=== PATIENT | female | born 1950 | race Caucasian/White ===

== ENCOUNTER → 2020-01-02 10:50 | Outpatient (CLI) | payer MEDICARE, BC, SELFPAY ==
--- NOTE | 2020-01-02 | DI.RAD.S_ITS ---
PROCEDURE: FL BARIUM SWALLOW INDICATIONS: Gastro-esophageal reflux disease without esophagit COMPARISON: None. FINDINGS: Function: There is decreased esophageal peristalsis. No elicited gastroesophageal reflux. There is normal transit of a calibrated barium tablet through the esophagus into the stomach. Morphology: Air-contrast images demonstrate normal mucosal morphology. Single contrast views show no esophageal strictures, extrinsic mass effects, or diverticula. Limited images of the stomach demonstrate normal appearance. IMPRESSION: Esophageal dysmotility Dictated by: Rashid Bruno M.D. on 01/02/2020 at 12:34 Approved by: Rashid Bruno M.D. on 01/02/2020 at 12:35
== END ==
PROVIDERS: PCP Family Medicine; Referring Provider Family Medicine; Visit Provider Family Medicine
DX: K21.9 Gastro-esophageal reflux disease without esophagitis (principal); K22.4 Dyskinesia of esophagus
CPT/HCPCS: 74220

== ENCOUNTER → 2020-03-25 13:26 | Outpatient (CLI) | payer MEDICARE, BC, SELFPAY ==
[2020-03-25 14:37] LABS: COVID19 -Nasal RAPID Negative (Negative)
== END ==
PROVIDERS: PCP Family Medicine; Visit Provider Physician Assistant
DX: Z11.59 Encounter for screening for other viral diseases (principal)
CPT/HCPCS: 87635

== ENCOUNTER 2020-03-27 10:49 | Day surgery (SDC) | payer MEDICARE, BC, SELFPAY ==
[2020-03-27] VITALS (7 sets, daily range): BP systolic 124–140; BP diastolic 20–86; PULSE 58–95; RESP 12–18; TEMP 36.2–36.5; O2SAT 93–98; BMI 30.7
--- NOTE | 2020-03-27 | PATH_ITS ---
[facility] Accession Number: [id number] . 01 Material submitted: . PART A: body - GASTRITIS PART B: hepatic flexure - HEPATIC POLYP . 01 Clinical history: . A: GASTRITIS R/O HP . 02 Diagnosis: A. Stomach, Biopsies: Gastric body mucosa with mild chronic inflammation. Negative for Helicobacter organisms by immunohistochemistry. Negative for intestinal metaplasia. Negative for dysplasia or malignancy. . B. Hepatic Flexure, Biopsy: Inflammatory polyp. Negative for dysplasia or malignancy. Additional step sections examined. MRV 04/01/2020 1517 Local . 02 Electronically signed: . Indra Esqueda MD, PhD, Pathologist NPI- [id number] . 01 Gross description: . Part A: GASTRITIS: Received in formalin is 1 fragment(s) of zavala, soft tissue measuring 0.4 x 0.2 x 0.1 cm submitted entirely in 1 cassette(s) Part B: HEPATIC POLYP: Received in formalin is 1 fragment(s) of zavala, soft tissue measuring 0.4 x 0.3 x 0.4 cm which is inked, bisected and submitted entirely in 1 cassette(s) 1. /QBJ 03/28/2020 0654 Local . 02 Microscopic: . A. An immunohistochemical stain was performed to evaluate for Helicobacter organisms and is negative. The control stain showed appropriate reactivity. . * This test was developed and its performance characteristics determined by [facility]. It has not been cleared or approved by the U.S. Food and Drug Administration. The FDA has determined that such clearance or approval is not necessary. This test is used for clinical purposes. It should not be regarded as investigational or for research. . 02 Pathologist provided ICD-10: K29.70, K51.40 . 02 CPT . 316433, 610785, Y17502 Performed at: 01 [facility] [address] [place] [address], [place], [place] [id number] MD Cristino Graham MD Phone: [phone] Performed at: 02 [facility] [address] [place], [place] [id number] MD Sharona Fritz MD Phone: [phone]
[2020-03-27] MEDS: SODIUM CHLORIDE 0.9% 1,000 ML 200 ML IV (11:28)
--- NOTE | 2020-03-27 12:08 | PM.HP.1 ---
History of Present Illness History of Present Illness Date Patient Seen: 03/27/20 Chief complaint: DX COLONOSCOPY/EGD Narrative: GE reflux with cough and adenomatous colon polyps need for EGD and colonoscopy Patient History Family & Social History Social History: household members spouse Tobacco & Substance use: Smoking Status Never smoker alcohol intake frequency holiday/special occasion Substance Use Type does not use Meds Home Medications and Allergies Home Medications Medication Instructions Recorded Confirmed Type atorvastatin 10 mg PO DAILY 03/27/20 03/27/20 History pantoprazole 40 mg PO BID 03/27/20 03/27/20 History Allergies Allergy/AdvReac Type Severity Reaction Status Date / Time No Known Drug Allergies Allergy Verified 03/27/20 11:10 Exam Vital Signs (past 8 hours): - 03/27/20 11:11 Temperature 97.1 F L Pulse Rate 58 L Respiratory Rate 16 Blood Pressure 140/77 Pulse Oximetry 98 Oxygen Delivery Method Room Air Narrative Exam Narrative: Oropharynx free of lesions Chest clear to auscultation percussion Cardiac exam reveals no S3 or murmur Assessment & Plan Assessment & Plan narrative: GE reflux with cough and history of adenomatous colon polyps. Need for EGD and colonoscopy. Risks, benefits, and alternatives have been explained.
--- NOTE | 2020-03-27 12:10 | PM.OP.ENDO ---
Operative Date/Time/Diagnoses Date of procedure: 03/27/20 Pre-op diagnosis: See indication and findings Post-op diagnosis: same Procedure & Clinicians Study performed: EGD and colonoscopy Same procedure as scheduled: Yes Indications: GE reflux with cough and history of adenomatous colon polyps Surgeon: Ana Paula Dougherty Procedure Notes Procedure in detail: After informed consent was obtained the patient was placed in left lateral decubitus position. Video colonoscope was introduced the rectum slowly advanced to cecum. Preparation was good. On slow withdrawal mucosa was carefully examined. The scope was removed. Patient tolerated procedure well. The gastroscope was then substituted. This was passed through the mouth into the esophagus stomach and duodenum. These were carefully examined on withdrawal. Retroflexed view was performed. The scope was removed. The patient tolerated procedure well. Blood loss none Complications none Sedation Total sedation time 21 minutes Versed 8 mg fentanyl 150 micro g IV titration Findings EGD 1. Normal esophagus with normal squamocolumnar junction 2. Streaky gastric erythema in the distal stomach and antrum biopsies taken to rule out Helicobacter 3. Normal duodenal bulb and sweep Colonoscopy 1. A 6 mm pedunculated polyp at the hepatic flexure hot snared removed completely. Hot snare used because of visibility of the feeding blood vessel through the polyp stalk. 2. Sigmoid diverticulosis 3. Otherwise negative colonoscopy to cecum Will be in touch regarding the pathology. For repeat colonoscopies will be based on the pathology of her polyp but most likely, with new surveillance changes at the site a level, no have her come back and 7-10 years probably on her 78th birthday. Her double dose of Protonix as completely ameliorated her cough symptoms. I suggest she stick the medication b.i.d. through the holidays and then taper down to once daily after the of the year. We will then see how long this once a day medication will help the cough. Further recommendations will follow the response. This
[2020-03-27] MEDS: fentaNYL 250 MCG/5 ML INJ IV (12:59)
[2020-03-27] MEDS: MIDAZOLAM 5 MG/5 ML VIAL IV (13:06)
== END 2020-03-27 14:12 | disposition home or self-care (01) ==
PROVIDERS: Referring Provider Internal Medicine Gastroenterology; Visit Provider Internal Medicine Gastroenterology
PROC: 0DJ08ZZ Inspection of Upper Intestinal Tract, Via Natural or Artificial Opening Endoscopic (ICD-10-PCS; CPT 43235; principal; 2020-03-27 12:30)
PROC: 0DJD8ZZ Inspection of Lower Intestinal Tract, Via Natural or Artificial Opening Endoscopic (ICD-10-PCS; CPT 45378; 2020-03-27 12:30)
DX: Z12.11 Encounter for screening for malignant neoplasm of colon (principal); R05 Cough; Z86.010 Personal history of colon polyps; K21.9 Gastro-esophageal reflux disease without esophagitis; J45.909 Unspecified asthma, uncomplicated; K57.30 Diverticulosis of large intestine without perforation or abscess without bleeding; K29.50 Unspecified chronic gastritis without bleeding; K51.40 Inflammatory polyps of colon without complications
CPT/HCPCS: 45385; 43239; J2250; J3010

== ENCOUNTER 2021-08-12 06:50 | Emergency (ER) | payer MEDICARE, BC, SELFPAY ==
[2021-08-12 06:57] VITALS: BP 212/100; PULSE 54; RESP 20; TEMP 37; O2SAT 98
--- NOTE | 2021-08-12 07:23 | ED_ITS ---
HPI - Extremity Injury (Lower) General Chief Complaint: Extremity Injury, Lower Stated Complaint: R/O DVT in left leg Time Seen by Provider: 08/12/21 07:23 Source: patient Mode of arrival: Ambulatory Limitations: no limitations History of Present Illness HPI Narrative: This is a 70-year-old female who comes in to evaluate for DVT of the left leg. Patient had a remote injury to her knee, she end up having an MRI was found to have a meniscal tear. She saw orthopedic surgery who gave her a prednisone injection to the knee and she is on oral prednisone currently. Her pain is typically been in the front of the but she has began to develop pain in the back of the knee and now radiating up into her left inner thigh. Patient states she has not any known history of DVTs but she is on estrogen replacement. Patient states that she has felt like the leg is maybe slightly warmer than the other but she has not appreciated any redness or significant swelling. She has not had any new injuries or changes. She denies fevers or chills. No chest pain or shortness of breath, no other GI or urinary symptoms. She was seen at walk-in clinic or urgent care was recommended try to get a DVT ultrasound but they can arrange this outpatient for 2-3 more days to patient came for more urgent evaluation. She is on atorvastatin and pantoprazole. She has been taking NSAIDs as needed for pain management. No known drug allergies. She has had a right knee surgery remotely but no intervention on her left knee. No tobacco, occasional alcohol, no illicit. She is noted to have elevated blood pressure today she states she is typically 120s in was 120 yesterday the urgent care. Related Data Home Medications Medication Instructions Recorded Confirmed atorvastatin 10 mg tablet 10 mg PO DAILY 03/27/20 03/27/20 pantoprazole 40 mg tablet,delayed 40 mg PO BID 03/27/20 03/27/20 release Allergies Allergy/AdvReac Type Severity Reaction Status Date / Time No Known Drug Allergies Allergy Verified 03/27/20 11:10 Review of Systems Review of Systems ROS Unobtainable: All systems reviewed & are unremarkable except as noted in HPI and below Patient History Social History household members: spouse Smoking Status: Never smoker Smoking Status: Never smoker alcohol intake frequency: holidays/special occasions only Substance Use Type: does not use Exam Narrative Exam Narrative: GENERAL: Alert and oriented x three, female in mild distress. HEENT: Head normocephalic, atraumatic, EOMI, pupils reactive, face symmetric, moist mucous membranes NECK: Supple, full range of motion CARDIOVASCULAR: Regular rate and rhythm without murmurs, rubs or gallops. RESPIRATORY: Breath sounds equal bilaterally, no wheezes rales or rhonchi. ABDOMEN: Soft, nontender. Normoactive bowel sounds all 4 quadrants. No guarding or rebound, rigidity, no mass EXTREMITIES: Normal range of motion, no clubbing or edema. Neurovascularly intact. Mild tenderness in the posterior knee. Negative Homans. Patient does not have any swelling, erythema or warmth appreciated in the lower extremity. She has 2+ pulse bilaterally. Joint laxity testing is normal. Patient does have some mild increase in pain with compression test. Patient is able to stand and move without issue. NEUROLOGICAL: Cranial nerves II through XII grossly intact. Moving all extremities SKIN: Warm, dry, no petechiae, no rashes or lesions. Initial Vital Signs Initial Vital Signs: Vital Signs Temperature 98.6 F 08/12/21 06:57 Pulse Rate 54 L 08/12/21 06:57 Respiratory Rate 20 08/12/21 06:57 Blood Pressure 212/100 H 08/12/21 06:57 Pulse Oximetry 98 08/12/21 06:57 Course Orders Ordered: ED Orders 08/12/21 07:35 US perip venous low extrem lt Stat Vital Signs Vital signs: Vital Signs - 8 hr 08/12/21 06:57 Temperature 98.6 F Pulse Rate 54 L Respiratory Rate 20 Blood Pressure 212/100 H Pulse Oximetry 98 MDM - Extremity Injury (Lower) Imaging Data US - DVT: Radiologist's Impression: Launch?[address] [address] Ultrasound Report Signed Patient: Roseline Austin MR#: [id number] : 1950 Acct:[id number] Age/Sex: 70 / F Date of Service: 08/12/21 Loc: ED Accession Number: [id number] ?? Procedure: US periph venous low extrem lt Ordering Provider: Charisse Ga D.O. PROCEDURE:? US PERIPH VENOUS LOW EXTREM LT ? INDICATIONS:? left posterior knee and inner thigh pain ? TECHNIQUE:? Real-time imaging, as well as color and pulse Doppler interrogation, were performed of the lower extremity deep veins from the inguinal ligament to the popliteal fossa.? ? COMPARISON:? None. ? FINDINGS:? The common femoral, femoral and popliteal veins are normally compressible, and free of intraluminal thrombus.? Color and pulse Doppler demonstrate normal phasic intraluminal flow.? There is normal augmentation response to distal compression maneuver. ?A Gustafson's cyst is seen measuring 2.7 x 0.8 x 1.2 cm. ? IMPRESSION:? No DVT in the left lower extremity. ? ? Dictated by: Dean Soler M.D. on 08/12/2021 at 8:14 ? ? Approved by: Dean Soler M.D. on 08/12/2021 at 8:14 MDM Narrative Medical decision making narrative: This is a 70-year-old female presents for evaluation for DVT of left leg. She has pain that has changed location in terms of her recent knee injury. She has pain in the posterior knee and inner thigh she has appreciate some slight warmth but her exam otherwise is reassuring. She has attempted to have outpatient follow-up for DVT ultrasound but will be several days until this can be obtained. She does have risk factors being on estrogen. Patient is hypertensive on initial arrival. Ultrasound shows Gustafson cyst but no DVT. Patient does note pain in the posterior knee this is likely source of that discomfort. Upper thigh may also be related to adjusting her gait secondary to her meniscal injury. Discussed today's findings with the patient all questions answered. Discharge Plan Departure Patient Disposition: Home Clinical Impression: Left leg pain, Gustafson's cyst Instructions: DI for Leg Pain Activity Restrictions/Additional Instructions: I suspect your pain and discomfort is secondary to your body trying to adjust the injury to your knee. There is no DVT noted on your ultrasound but there is a Gustafson's cyst which could cause pain behind your knee. If you tolerate Tylenol you may take this up to a 1000 mg every 6 hours as needed in addition to ibuprofen. Please return for new warmth, redness, increasing swelling, rapidly worsening pain, numbness, tingling or weakness or other new or concerning symptoms. Prescriptions: No Action pantoprazole 40 mg tablet,delayed release (DR/EC) 40 mg PO BID 0RF atorvastatin 10 mg tablet 10 mg PO DAILY 0RF
--- NOTE | 2021-08-12 07:35 | DI.US.S_ITS ---
PROCEDURE: US PERIPH VENOUS LOW EXTREM LT INDICATIONS: left posterior knee and inner thigh pain TECHNIQUE: Real-time imaging, as well as color and pulse Doppler interrogation, were performed of the lower extremity deep veins from the inguinal ligament to the popliteal fossa. COMPARISON: None. FINDINGS: The common femoral, femoral and popliteal veins are normally compressible, and free of intraluminal thrombus. Color and pulse Doppler demonstrate normal phasic intraluminal flow. There is normal augmentation response to distal compression maneuver. A Gustafson's cyst is seen measuring 2.7 x 0.8 x 1.2 cm. IMPRESSION: No DVT in the left lower extremity. Dictated by: Dean Soler M.D. on 08/12/2021 at 8:14 Approved by: Dean Soler M.D. on 08/12/2021 at 8:14
[2021-08-12 08:29] VITALS: BP 155/79; PULSE 55; RESP 16; O2SAT 97
== END 2021-08-12 08:28 | disposition home or self-care (01) ==
PROVIDERS: Emergency Provider Emergency Medicine
DX: M79.662 Pain in left lower leg (principal); M71.22 Synovial cyst of popliteal space [Baker], left knee
CPT/HCPCS: 93971; 99283

== ENCOUNTER → 2024-02-25 12:36 | Outpatient (CLI) | payer MEDICARE, BC, SELFPAY ==
--- NOTE | 2024-02-25 12:39 | DI.MRI.S_ITS ---
PROCEDURE: MR LUMBAR SPINE WO CON INDICATIONS: RADICULOPATHY,LUMBOSACRAL REGION TECHNIQUE: Noncontrast sagittal T1 spin echo and T2 fast echo, sagittal STIR, and T2 fast spin echo through the lumbar spine. In cases with scoliosis, additional coronal T2 fast spin echo may be performed. COMPARISON: [facility], CR, XR LUMBAR SPINE WITH OBLIQUES PLUS FLEXION EXTENSION, 02/21/2024, 15:57. FINDINGS: Image quality: Excellent. Alignment and Curvature: There is normal bony alignment. Bone Marrow: Mild levoscoliosis of lower thoracic spine and compensatory mild right were curvature of upper lumbar spine is seen. There is no marrow edema. No acute vertebral body compression deformity. Chronic appearing anterior wedge compression deformity involving superior endplate of T12 is noted with up to 40% loss of T12 vertebral body height anteriorly. Schmorl's nodes are seen involving superior endplate of L2 and L3 vertebral bodies. Spinal Cord: Conus medullaris terminates at the L1 level. Visualized cord demonstrates normal signal and size. Paraspinous Soft Tissues: No paravertebral masses. T12-L1: There is disc desiccation. No significant disc bulge, canal stenosis or neural foraminal narrowing. L1-L2: There is disc desiccation and loss of disc height. Bilateral facet arthrosis and mild diffuse disc bulge is seen. No significant central canal stenosis. Mild right-sided neural foraminal narrowing is seen. L2-L3: There is loss of disc height and disc desiccation. Broad-based disc bulge and bilateral facet arthrosis with mild central canal stenosis and moderate left-sided neural foraminal narrowing. Mild right-sided neural foraminal narrowing is also seen. L3-L4: There is disc desiccation and degenerative endplate changes. Broad-based disc bulge and bilateral facet arthrosis with hypertrophy of ligamentum flavum causing [id number] central canal stenosis, [id number] left-sided neural foraminal narrowing and mild right-sided neural foraminal narrowing. L4-L5: There is disc desiccation and loss of disc height. Broad-based disc bulge and bilateral facet arthrosis with hypertrophy of ligamentum flavum is seen causing [id number] central canal stenosis, severe right-sided neural foraminal narrowing and moderate left-sided neural foraminal narrowing. L5-S1: Disc desiccation and loss of disc height. Broad-based, more right-sided disc herniation and bilateral facet arthrosis is seen. No significant central canal stenosis. Severe right-sided neural foraminal narrowing is noted with mild compression of right L5 nerve root. IMPRESSION: 1. Mild scoliosis of lower thoracic and lumbar spine as above. No acute compression fracture. Chronic appearing superior endplate anterior wedge compression deformity at T12 level with up to 40% loss of vertebral body height. No marrow edema. No suspicious bony lesions. 2. Degenerative disc disease and bilateral facet arthrosis throughout lumbar spine causing various degrees of central canal stenosis and bilateral neural foraminal narrowing as described above. Dictated by: Miguel Ángel Sanderson M.D. on 02/25/2024 at 16:17 Approved by: Miguel Ángel Sanderson M.D. on 02/25/2024 at 16:23
== END ==
PROVIDERS: PCP Internal Medicine; Referring Provider Physical Medicine & Rehabilitation Pain Medicine; Visit Provider Physical Medicine & Rehabilitation Pain Medicine
DX: M51.17 Intervertebral disc disorders with radiculopathy, lumbosacral region (principal); M51.16 Intervertebral disc disorders with radiculopathy, lumbar region; M47.26 Other spondylosis with radiculopathy, lumbar region; M47.27 Other spondylosis with radiculopathy, lumbosacral region; M48.061 Spinal stenosis, lumbar region without neurogenic claudication; M48.07 Spinal stenosis, lumbosacral region; M41.9 Scoliosis, unspecified; M43.8X4 Other specified deforming dorsopathies, thoracic region
CPT/HCPCS: 72148

== ENCOUNTER → 2024-09-27 09:38 | Outpatient (CLI) | payer MEDICARE, BC, SELFPAY ==
--- NOTE | 2024-09-27 09:43 | DI.NM.S_ITS ---
PROCEDURE: NM PIERO PERF SPECT REST & STR Rest and exercise myocardial perfusion SPECT with gated imaging and ejection fraction RADIOPHARMACEUTICAL: 11.4 mCi Tc-99m sestamibi IV at rest and 25.9 mCi Tc-99m sestamibi IV at peak exercise. A 1 day-protocol was performed. INDICATIONS: CHEST PAIN PQRS ATTESTATIONS: Measure 322 - Is this imaging test primarily performed on a low-risk surgery patient for preoperative evaluation within 30 days preceding their low-risk non-cardiac surgery? Low-risk surgery is defined as cardiac or myocardial infarction less than 1%, including (but not limited to) endoscopic procedures, superficial procedures, cataract surgery, and excisional breast surgery: Answer: No Measure 323 - Is this imaging test performed primarily for the monitoring of an asymptomatic patient who had percutaneous coronary intervention on the visit date or within 2 years of the visit date? Answer: No Measure 324 - Is this imaging test performed primarily for the initial detection and risk assessment on an asymptomatic, low coronary heart disease patient? Low CHD risk definition = clinicians should consider the maximum number of available patient factors used to estimate risk based on [place] (ATP III criteria), typically age, gender, diabetes, smoking status, and use of blood pressure medication, and integrate age appropriate estimates for missing elements, such as LDL or standard blood pressure. Answer: No TECHNIQUE: Radiopharmaceutical was injected at peak stress test, and also at rest. SPECT images were obtained. SPECT myocardial perfusion images were displayed in short axis, horizontal long axis, and vertical long axis views. Gated images were reviewed using [employer] software. COMPARISON: None. CARDIAC STRESS: A standard Jules treadmill exercise tolerance test was performed by the patient under the supervision of an attending staff. The patient exercised for 7 minutes and 20 seconds; functional aerobic impairment (JEMAL) is -40%. Hemodynamic data: There is normal blood pressure and heart rate response to exercise stress. Patient achieved 94% of maximum predicted heart rate at peak exercise. Symptoms: Patient denied chest pain during exercise. EKG: No diagnostic EKG changes of ischemia; frequent PVCs noted near peak stress. Occasional PACs noted during recovery. FINDINGS: Raw data: There is good myocardial labeling by radiotracer. No significant motion artifacts. Tcac-qf-alqhr ratio is 0.26 (normal is less than 0.38 for sestamibi tracer, and less than 0.50 for thallium tracer). Left ventricle function: Gated images demonstrate normal left ventricle wall thickening. No segmental wall motion abnormality. No transient ischemic dilation; TID is 0.83 (normal less than 1.3). The left ventricle resting end-diastolic volume is 65 mL. Left ventricle stress ejection fraction is 72; normal values are above 45%. Myocardial perfusion: Resting images had slight hypoperfusion in the distal anterior segment. Stress images had mild hypoperfusion in the entire anterior segment. Prone images had no perfusion defects. IMPRESSION: 1. Negative exercise myocardial perfusion scan for ischemia and infarction. 2. Above average exercise tolerance. Dictated by: Nathan Sanderson M.D. on 09/27/2024 at 17:29 Approved by: Nathan Sanderson M.D. on 09/27/2024 at 17:31
--- NOTE | 2024-09-27 09:43 | DI.ECHO.S_ITS ---
[facility] : : [address] : : [place] : : [id number] : : Phone: [phone] Echocardiogram Report + + :Name: ELO CALL Study Date: 09/27/2024 Height: 65.5 in: :[facility] ReadingLocation: Weight: 170 lb : : Gender: Female BSA: 1.9 m2 : :: 1950 Age: 74 yrs BP: 123/73 mmHg: :Reason For Study: CHEST PAIN : :Ordering Physician: THELMA FLORENCE : :FARM SERVICE CONSULTANT-C Performed By: Anum Doll : :Referring: THELMA FLORENCE FARM SERVICE CONSULTANT-C : + + Interpretation Summary The left ventricle is normal in size and wall thickness. The left ventricular ejection fraction is normal. The ejection fraction is estimated to be 60-65%. The right ventricle is normal in size and function. No significant valvular pathology seen. The IVC is of normal diameter and collapses greater than 50% with a sniff. This suggests a low right atrial pressure of 3 mm Hg. The patient was in sinus bradycardia with heart rates between 45-60 bpm during the exam. Liver cyst seen (3.7 x 2.8 cm). Procedure: A two-dimensional transthoracic echocardiogram with color flow and Doppler was performed. The study quality was technically adequate. There is no prior echocardiogram noted for this patient. The patient was in sinus bradycardia with heart rates between 45-60 bpm during the exam. Left Ventricle: The left ventricle is normal in size and wall thickness. There is no thrombus. The ejection fraction is estimated to be 60-65%. The left ventricular ejection fraction is normal. There are no focal wall motion abnormalities. MV E/A: 1.0 Med Peak E' Jeremy: 6.3 cm/sec E/E' med: 11.6. Right Ventricle: The right ventricle is normal in size and function. Atria: The left atrial size is normal. Right atrial size is normal. There is no Doppler evidence for an interatrial shunt. Mitral Valve: The mitral valve leaflets appear to open well. The mitral valve leaflets appear borderline thickened, but open well. There is mild mitral annular calcification. There is trace mitral regurgitation. Aortic Valve: The aortic valve is trileaflet. The aortic valve is slightly calcified. There is no hemodynamically significant valvular aortic stenosis. No aortic regurgitation is present. Tricuspid Valve: The tricuspid valve is normal. There is trace tricuspid regurgitation. The right ventricular systolic pressure is estimated to be at least 17 mmHg based on an estimated right atrial pressure of 3 mm Hg. Pulmonic Valve: The pulmonic valve is not well seen, but is grossly normal. There is trace pulmonic regurgitation. Great Vessels: The aortic root is normal size. The dimensions of the ascending aorta are normal. The IVC is of normal diameter and collapses greater than 50% with a sniff. This suggests a low right atrial pressure of 3 mm Hg. Pericardium/ Pleura There is no pericardial effusion. There is no pleural effusion. MMode/2D Measurements & Calculations LVIDd: 4.7 cm LVOT diam: 2.0 cm LVIDs: 3.0 cm Ao root diam: 3.0 cm FS: 35.3 % asc Aorta Diam: 3.3 cm EPSS: 0.45 cm Ao Arch Diam (Prox Trans): 3.2 cm IVSd: 0.81 cm LVPWd: 0.76 cm LV montiel. diameter/BSA (cm/m^2): 2.5 LV sys. diameter/BSA (cm/m^2): 1.6 LA A2 area: 16.7 cm2 RA long axis: 4.5 cm LA A4 area: 15.4 cm2 RA area: 13.8 cm2 LA length (vol): 4.9 cm RA vol: 36.0 ml LA vol: 45.1 ml RA : 19.4 ml/m2 LA vol index: 24.3 ml/m2 IVC diam: 1.5 cm RVD1 (basal): 3.7 cm RVD2 (mid): 2.7 cm TAPSE: 2.2 cm Doppler Measurements & Calculations Ao V2 max: 179.2 cm/sec LVOT Max Jeremy: 96.1 cm/sec Ao V2 mean: 115.8 cm/sec LV V1 max P.7 mmHg Ao max P.9 mmHg LV V1 VTI: 21.9 cm Ao mean P.1 mmHg INNA(I,D): 1.8 cm2 Ao V2 VTI: 39.3 cm INNA(V,D): 1.8 cm2 sev ratio: 0.56 INNA indexed to BSA (cm^2/m^2): 0.98 MV E max jeremy: 73.7 cm/sec TR max jeremy: 186.9 cm/sec MV A max jeremy: 73.4 cm/sec TR max P.0 mmHg MV E/A: 1.0 PA V2 max: 109.8 cm/sec Med Peak E' Jeremy: 6.3 cm/sec PA V2 mean: 69.8 cm/sec E/E' med: 11.6 PA mean P.3 mmHg Lat Peak E' Jeremy: 9.0 cm/sec PA pr(Accel): 30.2 mmHg E/E' lat: 8.1 E/e' average: 9.9 MV dec time: 0.23 sec SV(LVOT): 71.8 ml Reading Physician:12:01 PM
== END ==
PROVIDERS: PCP Internal Medicine; Referring Provider Nurse Practitioner Primary Care; Visit Provider Nurse Practitioner Primary Care
DX: R07.9 Chest pain, unspecified (principal); R00.1 Bradycardia, unspecified
CPT/HCPCS: 78452; 93017; 93306; A9502

== ENCOUNTER 2025-04-02 08:56 | Day surgery (SDC) | payer MEDICARE, BC, SELFPAY ==
[2025-03-28 13:12] VITALS: BMI 29.2
--- NOTE | 2025-04-02 | PATH_ITS ---
[facility] Accession Number: [id number] No. of containers..01 Tissue . 01 Material submitted: . colon - CECAL POLYPS . 01 Diagnosis: CECAL POLYPS: Sessile serrated adenomas and tubular adenomas. JOLENE 04/09/2025 1826 Local . 01 Electronically signed: . Indra Esqueda MD, PhD, Pathologist NPI- [id number] . 01 Gross description: . Received is one formalin-filled container labeled with the patient's name and labeled cecal polyp. The specimen consists of three fragments of zavala, soft tissue which range in size from less than 0.1 cm to 0.5 x 0.4 x 0.4 cm. All fragments are totally submitted in cassette A1. ([id number]) /JOLENE 04/05/2025 0124 Local . 01 Pathologist provided ICD-10: D12.0 . 01 CPT . 991643 Specimen Comment: A courtesy copy of this report has been sent to [phone] Performed at: [address] [id number] MD Cristino Graham MD Phone: [phone]
[2025-04-02 09:51] VITALS: BP 152/77; PULSE 66; RESP 18; TEMP 36.4; O2SAT 97
[2025-04-02] MEDS: LACTATED RINGERS 1,000 ML 42 ML IV (10:07)
--- NOTE | 2025-04-02 10:12 | PM.HP.IH.1 ---
History of Present Illness History of Present Illness Date Patient Seen: 04/02/25 Chief complaint: Screening Colonoscopy Narrative: And history of diverticulitis PFSH Medical History (Updated 04/02/25 @ 10:13 by Ana Paula Dougherty MD) Skin cancer, basal cell Non-melanoma skin cancer Synovial cyst of popliteal space [Gustafson], left knee Tear of meniscus of left knee Asthma HLD (hyperlipidemia) IBS (irritable bowel syndrome) GERD (gastroesophageal reflux disease) Surgical History (Updated 03/28/25 @ 13:02 by Manju Perry RN) History of LAVH Hx of appendectomy Hx of breast biopsy Hx of tonsillectomy Hx of colonoscopy (01/2015) S/P right knee arthroscopy Social History household members: spouse Smoking Status: Never smoker alcohol intake: current Meds Home Medications and Allergies Home Medications ?Medication ?Instructions ?Recorded ?Confirmed ?Type atorvastatin 10 mg tablet 10 mg PO DAILY 03/27/20 04/02/25 History pantoprazole 40 mg tablet,delayed 40 mg PO BID 03/27/20 04/02/25 History release sodium,potassium,mag sulfates 17.5 See Rx Instructions PO .COMPLEX 02/22/25 Rx gram-3.13 gram-1.6 gram oral soln #354 mL (Suprep Bowel Prep Kit) celecoxib 200 mg capsule 200 mg PO DAILY 04/02/25 04/02/25 History ciclesonide 160 mcg/actuation 1 inh inhalation BID 04/02/25 04/02/25 History aerosol inhaler (Alvesco) estradiol 0.01% (0.1 mg/gram) vaginal 04/02/25 History vaginal cream estradiol 0.05 mg/24 hr weekly 1 patch transdermal 04/02/25 History transdermal patch (Climara) Allergies Allergy/AdvReac Type Severity Reaction Status Date / Time No Known Drug Allergies Allergy Verified 04/02/25 09:44 Exam Vital Signs (past 8 hours): - 04/02/25 09:51 Temperature 97.6 F Pulse Rate 66 Respiratory Rate 18 Blood Pressure 152/77 H Pulse Oximetry 97 Oxygen Delivery Method Room Air Oxygen Delivery Method Room Air Narrative Exam Narrative: Oropharynx free of lesions Chest clear to auscultation percussion Cardiac exam reveals no S3 or murmur Assessment & Plan Assessment and plan (1) Diverticula of colon: Status: Acute (2) Screen for colon cancer: Status: Acute Assessment & Plan narrative: Need for follow-up colonoscopy. Risks, benefits, alternatives have been explained. Time-Based Coding :: [TOTAL MINUTES] spent with patient and on the chart (including review of chart, obtaining history, exam, reviewing outside data, placing orders, documenting exam and treatment plan, and counseling patient) on [DATE]. PROFEE Etl Lead Document charge(s): No
--- NOTE | 2025-04-02 10:14 | PM.OP.COLON ---
Operative Date/Time/Diagnoses Date of procedure: 04/02/25 Time of procedure: 10:14 Pre-op diagnosis: History of diverticular disease Post-op diagnosis: same Procedure & Clinicians Study performed: Colonoscopy Same procedure(s) as scheduled: Yes Indications: Colonoscopy, screening Surgeon: Ana Paula Dougherty Anesthesia Type: Other Procedure Notes Procedure in detail: After informed consent was obtained the patient was placed in left lateral decubitus position. The video colonoscope was introduced the rectum slowly advanced cecum. Preparation was good. On slow withdrawal mucosa was carefully examined. The scope was removed. The patient tolerated procedure well. Blood loss none Complications none Sedation mac Findings 1. 1 cm cecal polyp and 5 mm cecal polyp. Removed with forceps and snare. Otherwise normal colonoscopy to cecum. Will be in touch regarding pathology and followup Estimated Blood Loss: 0 Complications: none
[2025-04-02 10:48] VITALS: BP 127/68; PULSE 75; RESP 15; TEMP 36.7; O2SAT 99
== END 2025-04-02 11:15 | disposition home or self-care (01) ==
PROVIDERS: PCP Family Medicine; Referring Provider Internal Medicine Gastroenterology; Visit Provider Internal Medicine Gastroenterology
PROC: 0DJD8ZZ Inspection of Lower Intestinal Tract, Via Natural or Artificial Opening Endoscopic (ICD-10-PCS; CPT 45378; principal; 2025-04-02 10:30)
DX: Z12.11 Encounter for screening for malignant neoplasm of colon (principal); J45.20 Mild intermittent asthma, uncomplicated; K21.9 Gastro-esophageal reflux disease without esophagitis; E78.5 Hyperlipidemia, unspecified; D12.0 Benign neoplasm of cecum
CPT/HCPCS: 45385; J2704; J7120